=== PATIENT | female | born 1990 | race Caucasian/White ===

== ENCOUNTER 2016-07-07 08:14 | Emergency (ER) | payer MEDICAID ==
[~2016-07-07] VITALS: Ht 162.6 cm; Wt 108.8 kg
[~2016-07-07 08:14] MED LIST: ACYC200C PO; AMOX500T2 PO
[2016-07-07 08:15] VITALS: TEMP 97.9; Ht 162.6 cm; Wt 108.8 kg
--- NOTE | 2016-07-07 08:30 | NUR ---
PHYSICIAN VISIT DR. MARRUFO AT BEDSIDE TO SEE PATIENT.
--- NOTE | 2016-07-07 08:36 | ERPDOC ---
Departure Disposition Decision Date: Jul 07, 2016 Disposition Decision Time: 08:56 Disposition: 01 DISCHARGED HOME, SELF-CARE Impression Impression Impression: Primary Impression: Right knee injury Encounter type: initial encounter Qualified Codes: S89.91XA - Unspecified injury of right lower leg, initial encounter Severity: Mild Condition: Improved Seen By: Physician only Referrals: Gagan MARTINEZ MD (PCP) [facility] 2 Days Problems/Meds/Labs Reviewed?: Yes Medications reviewed and manag: Yes Follow up care ordered?: Yes Mental Status: Alert, Oriented Scripts Naproxen (Naprosyn) 500 Mg Tablet 1 TAB PO BID Y for PAIN for 10 Days, #20 TAB 0 Refills Prov: SIMEON MARRUFO DO 07/07/16 Hydrocodone/Acetaminophen ([place] 5-325 Tablet) 5-325 Tablet 1 TAB PO Q4HR Y for PAIN for 2 Days, #12 TAB 0 Refills Prov: SIMEON MARRUFO DO 07/07/16 HPI - Lower Extremity General Chief Complaint: Lower Extremity Injury Stated Complaint: INJ LT KNEE Time Seen by Provider: 08:16 Source: patient Exam Limitations: no limitations HPI - Lower Extremity Initial Comments 25 -year-old female presents to emergency department with a chief complaint of an injury to her right knee. Patient was ambulating around the back of her car last night at approximately 8 PM when she slipped on the wet surface because it was raining outside and twisted her knee. Patient denies striking her head, loss of consciousness, or neck pain. Patient notes a moderate dull aching sensation throughout her right knee. No radiation. Pain increases with ambulation and movement of the affected area. Pain improves with rest and positioning. Patient denies any other injuries. No other complaints or associated symptoms. No prior injury of the right knee. She was at home when her symptoms began. Symptoms have been persistent in nature since onset. Symptoms have had a gradual progression. Occurred At: home Onset/Timing: Gradual Allergies: Coded Allergies: Cashews (Verified Allergy, Severe, THROAT SWELLS UP, STOMACH CRAMPS, AND VOMITING, 07/07/16) Walnuts (Verified Allergy, Severe, THROAT SWELLS UP, STOMACH CRAMPS AND VOMITTING, 07/07/16) Past History Past Medical History Pt denies signifigant PMH GI: GERD, other Female: kidney stones, miscarriage Surgical History Reproductive/: D&C, Family History Family PMH: FOUND: [place], diabetes, hypertension Vaccines Hx Influenza Vaccination: No Hx Pneumococcal Vaccination: No Social History Smoking Status: Never smoker Second Hand Exposure: No Substance Use Type: does not use, marijuana Substance last used: hours (ago) Alcohol Intake: none, other Last Drink: unknown Review of Systems Constitutional Constitutional: DENIES: chills, fever Eyes General: DENIES: erythema, exudate Lids/Accessories: DENIES: erythema, swelling Vision: DENIES: acuity, blurring ENMT Ears: DENIES: drainage, pain Hearing: DENIES: hearing loss Balance: DENIES: ataxia, falling to one side Sinuses: DENIES: congestion, pain Nose: DENIES: nosebleeds, pain Mouth/Throat: DENIES: painful swallowing, sore throat Teeth: DENIES: pain Jaw: DENIES: pain Cardiovascular Cardiac: DENIES: chest pain, dyspnea on exertion Rhythm/Rate: DENIES: irregular beat, palpitations Vascular: DENIES: pedal edema, unilateral swelling Pulmonary Respiratory: DENIES: cough, dyspnea, pleuritic chest pain, sputum GI Upper Abdomen: DENIES: nausea, pain, vomiting Lower Abdomen: DENIES: diarrhea, pain General: DENIES: dysuria, pain Musculoskeletal General: joint pain, tenderness Integumentary Skin: DENIES: itching, rash Neurological General: DENIES: headache, numbness, weakness Psychiatric Psychiatric: DENIES: emotional instability, suicidal ideation/attempt Endocrine Endocrine: DENIES: polydipsia, polyphagia Hematologic/Lymphatic Hematologic/Lymphatic: DENIES: frequent nosebleeds, lymphadenopathy Allergic/Immunological Allergic/Immunoligical: DENIES: allergic reactions, hives Physical Exam General General Nourishment: well nourished, well developed, appears stated age, no acute distress, adult General Body Habitus: well groomed Vitals and Pain First Documented Vital Signs Date Time Temp Pulse Resp B/P Pulse Ox O2 Delivery O2 Flow Rate FiO2 07/07/16 08:15 97.9 86 16 116/65 97 Room Air Weight: Kilograms: 108.800 Height (feet): 5 Height (inches): 4.00 Triage Pain Scale: RN VS reviewed by Provider: Yes Normal Exams: Head: Normocephalic w/o trauma Eyes: Pupils are PERRLA w/ EOMI, No scleral icterus, irritation, or foreign bodies noted ENMT: No facial trauma, nasal exudates, pharyngeal erythema, or exudates are noted Dental: No fractured, loose, or missing teeth noted Neck: Full range of motion, without adenopathy, JVD, bruits or thyromegaly Chest/Resp: Clear all groves, with good airflow, and symmetry bilaterally CV: Regular rate and rhythm, without murmur or gallop, Pulses 2+ all extremities, capillary refill, <2 seconds all ext., no pedal edema noted Abdomen: Bowel sounds positive, soft, non-tender, non-distended, no hepatosplenomegaly, masses or bruits noted Lymphatic: No lymphadenopathy, or lymphedema noted Musculoskeletal: or deformity noted, good range of motion, all extremities Integumentary: No rashes, hives, or bruising noted, hair and nails, without abnormality Neurologic: Patient is alert, and oriented, cranial nerves, motor/sensory/ cerebellar, exams w/o gross deficits, to observation Psychiatric: Patient exhibits, appropriate attention, emotion and affect Musculoskeletal (brief) Comments R Knee - full range of motion. Diffusely tender to palpation. No focal bony tenderness. Pulses are intact. Sensation intact. Capillary refill less than 2. No erythema. No edema. No other tenderness in the right lower extremity. Unremarkable ligamentous examination. All other extremities are unremarkable. Differential Diagnoses Considering: Fracture, Ligament Tear ACL, Ligament Tear PCL, Meniscal Injury, Knee, Sprain, Strain Progress Results/Orders Orders Procedure Category Date Status Time Knee Right 3 Views RAD 07/07/16 Resulted 08:32 Hydrocodone/Acetaminophen PHA 07/07/16 Complete ([place] 5/325) 09:00 Knee Immobilizer SONY 07/07/16 In Process 08:54 Crutches EDM 07/07/16 Transmitted 08:54 Medications Current ED Medications Acetaminophen/ Hydrocodone Bitart ([place] 5/325) 1 tab O ONCE PO Last administered on 07/07/16t 09:07; Start 07/07/16 at 09:00; Stop 07/07/16 at 09:01 ; Status DC Progress Progress Imaging is discussed in detail with the patient and questions are answered. Patient is given analgesic pain medication in the emergency department with improvement of symptoms. Patient is discharged home in improved condition. Patient is to follow up as instructed. Patient is to return to the emergency Department if her condition worsens or changes in any manner. Patient is in agreement with the current plan of management. Patient is to follow up as instructed. Patient is placed in a knee immobilizer with good alignment by the RN. Patient was distal neurovascular intact post-application of knee immobilizer. Crutches and education in their use are provided. Patient is in agreement with the current plan of management. She is to follow up as instructed. Prescriptions for [place] and Naprosyn are provided. Xray Xray : Xray: Knee R Interpretation: Normal, Interpreted by Me, Reviewed Written Report SIMEON MARRUFO DO Jul 07, 2016 08:36
--- NOTE | 2016-07-07 08:36 | NUR ---
X-RAY TRANSPORTED TO X-RAY VIA STRETCHER PER X-RAY TECH.
--- NOTE | 2016-07-07 08:43 | NUR ---
RETURNED RETURNED FROM X-RAY.
--- NOTE | 2016-07-07 08:53 | DI ---
Indication: ITS.REASON: Fall with injury, anterior knee pain PROCEDURE: KNEE RIGHT 3 VIEWS: Encounter: Initial Comparison: None Findings: There is no acute fracture, dislocation or malalignment identified. Impression: No acute osseous abnormality. .
[2016-07-07] MEDS ORDERED: NAPR500T PO (08:58)
[2016-07-07] MEDS ORDERED: HYDR-4246 PO (08:58)
[2016-07-07] MEDS ORDERED: HYDROCODONE/APAP 5 mg/325 mg TABLET PO ONE (09:00)
[2016-07-07 09:15] VITALS: BP 114/69; PULSE 86; RESP 16; O2SAT 98
== END 2016-07-07 09:18 | disposition home or self-care (01) ==
LOC: ED 08:14
DX: S89.91XA Unspecified injury of right lower leg, initial encounter (principal); W18.40XA Slipping, tripping and stumbling without falling, unspecified, initial encounter; Y93.01 Activity, walking, marching and hiking; Y92.008 Other place in unspecified non-institutional (private) residence as the place of occurrence of the external cause; Y99.8 Other external cause status